=== PATIENT | male | born 1965 | race Caucasian/White ===

== ENCOUNTER 2018-02-24 09:16 | Emergency (ER) | payer OTHER, MEDICAID ==
[~2018-02-24] VITALS: Ht 152.4 cm; Wt 59.9 kg
[2018-02-24 09:21] VITALS: BP 132/89
--- NOTE | 2018-02-24 09:30 | NUR ---
PT AMBULATES WITH ASSISTANCE TO BED 3
--- NOTE | 2018-02-24 09:36 | NUR ---
PATIENT BIB [facility] W/ C/O BOIL/WOUND ON RT BUTTOCKS;ERYTHEMA AND DRAINAGE NOTED.PT HAS A COLOSTOMY; DeNIES ANY FEVER; VSS; PATIENT POSITIONED FOR COMFORT; HOB ELEVATED; BEDRAILS UP X2; BED DOWN. ER MD MADE AWARE OF PT STATUS.
--- NOTE | 2018-02-24 09:52 | NUR ---
CONOR ARREDONDO AT BEDSIDE.
--- NOTE | 2018-02-24 10:13 | NUR ---
DR PAUL EVALUATING AT BEDSIDE
--- NOTE | 2018-02-24 10:32 | NUR ---
Patient discharged with v/s stable. Written and verbal after care instructions given and explained. Patient verbalized understanding. Ambulatory with steady gait. All questions addressed prior to discharge. Advised to follow up with PMD TO REFFER PT TO A SURGEON.
[2018-02-24 10:33] VITALS: BP 126/73
== END 2018-02-24 10:32 | disposition home or self-care (01) ==
LOC: MED 09:16
DX: K60.3 Anal fistula (principal); R03.0 Elevated blood-pressure reading, without diagnosis of hypertension; Z85.47 Personal history of malignant neoplasm of testis; G80.8 Other cerebral palsy; Q02 Microcephaly
CPT/HCPCS: 99283

== ENCOUNTER 2018-09-07 17:17 | Inpatient (IN) | payer OTHER, MEDICAID ==
[~2018-09-07] VITALS: Ht 152.4 cm; Wt 63.5 kg
[~2018-09-07 17:17] MED LIST: ASCO-672 PO; FERR325E14 PO; HAL1 PO; LACT10SO1 PO; METO25TA PO; MULT1SGL58 PO; OMEP20TC12 PO; PANT40EC PO
--- NOTE | 2018-09-07 17:18 | NUR ---
PT BIBA BLS TO BED 5
[2018-09-07 17:22] VITALS: BP 94/61
--- NOTE | 2018-09-07 17:22 | NUR ---
PT BIB BLS AMBULANCE FROM [facility] WITH COMPLAINTS OF VOMITTING AND COLOSTOMY BAG LEAKING TODAY. PER EMS BAG HAS BEEN ATTEMPTED TO BE CHANGED 6 TIMES WITHOUT SUCCESS. PT IS ALERT, NONVERBAL (AT BASELINE), ABLE TO AMBULATE AT BASELINE. HX--- MRCP, ACUTE RENAL FISSURE, ESOPHOGITIS, MICROCEPHALY, SCOLIOSIS MEDS---SEE MED REC
--- NOTE | 2018-09-07 17:25 | NUR ---
WOUND NOTED TO R GROIN/PERINEUM, DOCUMENTED ON WOUND ASSESSMENT AND PHOTOS TAKEN.
--- NOTE | 2018-09-07 17:57 | NUR ---
Note undone in EDM - 09/07/18 at 1800 by [email or web address] [facility] COMPLAINTS OF VOMITTING AND COLOSTOMY BAG LEAKING TODAY. PER EMS BAG HAS BEEN ATTEMPTED TO BE CHANGED 6 TIMES WITHOUT SUCCESS. PT IS ALERT, NONVERBAL (AT BASELINE), ABLE TO AMBULATE AT BASELINE. HX--- MRCP, ACUTE RENAL FISSURE, ESOPHOGITIS, MICROCEPHALY, SCOLIOSIS MEDS---SEE MED REC
[2018-09-07] MEDS ORDERED: NACL 0.9% 1,000 ML IV SCH (17:59)
[2018-09-07] MEDS ORDERED: MORPHINE SULFATE 4 MG/ML SYR IVP ONE (18:00)
[2018-09-07] MEDS ORDERED: ONDANSETRON 4 MG/2 ML VIAL IVP ONE (18:00)
--- NOTE | 2018-09-07 18:00 | NUR ---
PT ON BED IN SUPINE POSITION, BED IN LOW POSITION, FULL MONITOR ON. RESPIS E/U, NO EVIDENCE OF DISTRESS AT THIS TIME. NO IDENTIFIED REQUEST AT THIS TIME.
[2018-09-07 19:07] LABS: BASOPHILS % (AUTO) 0.4 % (0.0-2.0); EOSINOPHILS % (AUTO) 0.1 % (0.0-4.0); HEMATOCRIT 43.4 % (36-52); HEMOGLOBIN 14.2 g/dL (12.0-18.0); LYMPHOCYTES # (AUTO) 0.5 K/uL (2.0-11.5); LYMPHOCYTES % (AUTO) 4.9 % (20.5-51.1); MEAN CORPUSCULAR HEMOGLOBIN 30 pg (27-31); MEAN CORPUSCULAR HGB CONC 33 g/dL (33-37); MEAN CORPUSCULAR VOLUME 91.6 fL (80-94); MONOCYTES # (AUTO) 1.2 K/uL (0.8-1.0); MONOCYTES % (AUTO) 11.9 % (1.7-9.3); NEUTROPHILS # (AUTO) 8.1 K/uL (1.8-7.7); NEUTROPHILS % (AUTO) 82.7 % (42.2-75.2); PLATELET COUNT (AUTO) 196 K/uL (140-450); RED BLOOD CELL COUNT(AUTO) 4.74 MIL/uL (4.20-6.10); RED CELL DISTRIBUTION WIDTH 15.3 % (11.6-13.7); WHITE BLOOD COUNT (AUTO) 9.8 K/uL (4.8-10.8)
--- NOTE | 2018-09-07 19:15 | NUR ---
ASSUMED CARE OF PT AT THIS TIME PT IN BED, CAREGIVERS AT BEDSIDE.
--- NOTE | 2018-09-07 19:15 | NUR ---
Report given to Marivel LEGGETT
[2018-09-07 19:17] LABS: ANION GAP 13.2 (8-16); CARBON DIOXIDE 28.8 mmol/L (21-32); CREATININE 1.4 mg/dL (0.7-1.3)
[2018-09-07 19:19] LABS: APPEARANCE,URINE CLEAR (CLEAR); BILIRUBIN,URINE NEGATIVE (NEGATIVE); BLOOD, URINE NEGATIVE (NEGATIVE); COLOR,URINE YELLOW (YELLOW); LEUKOCYTE ESTERASE ,URINE NEGATIVE (NEGATIVE); NITRITE, URINE NEGATIVE (NEGATIVE); UGLUCOSE NEGATIVE (NEGATIVE)
[2018-09-07 19:24] LABS: ALBUMIN 3.9 g/dL (3.4-5.0); TOTAL BILIRUBIN 0.6 mg/dL (0.0-1.0)
[2018-09-07 19:25] LABS: PROTHROMBIN TIME 10.6 secs (10.8-13.4)
--- NOTE | 2018-09-07 19:38 | NUR ---
PT HAS OSOTOMY SITE TO RT LOWER ABD, GREEN LIQUID STOOL NOTED FROM SITE, CARE GIVERS NOTE THAT OSTOMY BAG HAS BEEN CHANGED ABOUT 6 TIMES TODAY AND PT HAS BEEN SEEN BY SPECIALIST BUT NO IMPROVEMENT.
[2018-09-07] MEDS ORDERED: NACL 0.9% 1,000 ML IV ONE (20:15)
[2018-09-07 20:18] LABS: RBC,URINE 0-5 (RARE) /HPF (0-5); URINE AMORPHOUS URATE 2+ /HPF (None Seen); WBC,URINE 0-5 (RARE) /HPF (0-5)
--- NOTE | 2018-09-07 20:20 | NUR ---
PER ADMITTING, PT TO ADMITTED TO [facility]. BEGIN ADMISSION PROCESS AT THIS TIME
[2018-09-07] MEDS: NACL 0.9% 1,000 ML IV SCH (20:28)
[2018-09-07] MEDS ORDERED: MORPHINE SULFATE 4 MG/ML SYR IVP PRN (20:30)
[2018-09-07] MEDS ORDERED: DOCUSATE SODIUM 100 MG GELCAP PO PRN (20:30)
--- NOTE | 2018-09-07 21:00 | NUR ---
PT IN BED AWAKE, NO NEW NEEDS AT THIS TIME.
[2018-09-07] MEDS ORDERED: BISA-246 RC (21:02)
[2018-09-07] MEDS ORDERED: METO10TA10 PO (21:02)
[2018-09-07] MEDS ORDERED: MAGN400S60 PO (21:02)
[2018-09-07] MEDS ORDERED: OLAN5TAB30 PO (21:02)
[2018-09-07] MEDS ORDERED: MIRABULK PO (21:02)
[2018-09-07] MEDS ORDERED: MENT1OIN22 TP (21:02)
[2018-09-07 21:15] VITALS: BP 86/60
--- NOTE | 2018-09-07 21:15 | NUR ---
REPORT RECEIVED FROM ED NURSE AT BEDSIDE. PT IN STABLE CONDITION. AAOX1. INTRODUCED SELF TO PT. BOARD UPDATED. PT HAS METAL DELAY. MRCP. NO FLACC 6 WHEN TOUCHING OSTOMY SITE. NO SOB. FEBRILE@100.4. WILL MEDICATE. IV SITE R WRIST 22G RUNNING NS@100ML/HR PATENT AND INTACT. PT HAS OSTOMY SITE THAT HAS A POSSIBLE PROLAPSE. SKIN WARM, DRY, AND NOT INTACT DUE TO A SKIN TEAR AT THE PERINEUM. BED LOCKED IN LOW POSITION. CALL RICHARDSON WITHIN REACH. SAFETY PRECAUTIONS IN PLACE. SEIZURE PRECAUTIONS IN PLACE. ALL NEEDS MET AT THIS TIME.
--- NOTE | 2018-09-07 21:15 | NUR ---
Patient will be admitted to care of DR BERTRAND. Admited to MED-SURG. Will go to [id number]. Belongings list completed. Report to BETSEY GONZALEZ.
[2018-09-07] MEDS: HYDROcodone/APAP 7.5/325 MG 1 TAB PO PRN (22:05)
--- NOTE | 2018-09-07 22:05 | NUR ---
NORCO GIVEN FOR FLACC 6/10 AT OSTOMY SITE. PT TOLERATED WELL.
[2018-09-08] VITALS: BP 112/61
--- NOTE | 2018-09-08 | NUR ---
PT HAD A FEVER OF 100.4. TEMPERATURE REASSESSED. NOW 98.3.
--- NOTE | 2018-09-08 01:00 | NUR ---
C.DIFF, STOOL CULTURE, AND WBC STOOL COLLECTED AND SENT TO LAB.
--- NOTE | 2018-09-08 02:00 | NUR ---
PT AWAKE AND ALERT WATCHING TV. NO S/S OF DISTRESS NOTED. WILL CONTINUE TO MONITOR.
[2018-09-08 02:20] LABS: FREE T4 (FREE THYROXINE) 0.84 ng/dL (0.76-1.46); MAGNESIUM 1.9 mg/dL (1.8-2.4); PHOSPHORUS 3.7 mg/dL (2.5-4.9); THYROID STIMULATING HORMONE 0.53 uIU/mL (0.34-3.74)
--- NOTE | 2018-09-08 04:00 | NUR ---
PT SLEEPING COMFORTABLY IN BED. NO S/S OF DISTRESS NOTED. FLACC 0. NO SOB. AFEBRILE. NO N/V. WILL CONTINUE TO MONITOR.
--- NOTE | 2018-09-08 06:00 | NUR ---
PT SLEEPING BUT AROUSABLE. NO S/S OF DISTRESS NOTED. BREATHING EVEN, UNLABORED, AND WNL. WILL CONTINUE TO MONITOR.
[2018-09-08] MEDS ORDERED: metroNIDAZOLE 500 MG/NS PREMIX 100 ML IV SCH (06:30)
[2018-09-08] MEDS: FERROUS SULFATE 325 MG TABEC PO SCH ×3 (06:38→15:59)
[2018-09-08] MEDS: ONDANSETRON 4 MG/2 ML VIAL IM/IVP PRN (06:38)
--- NOTE | 2018-09-08 06:38 | NUR ---
FERROUS SULFATE GIVEN PO. ZOFRAN GIVEN IVP FOR NAUSEA. PT TOLERATED WELL.
[2018-09-08] MEDS: NACL 0.9% 1,000 ML IV SCH (06:59)
--- NOTE | 2018-09-08 06:59 | NUR ---
GAVIN HUNG AND RUNNING. PT TOLERATED WELL.
[2018-09-08] MEDS ORDERED: metroNIDAZOLE 500 MG/NS PREMIX 100 ML IV ONE (07:02)
--- NOTE | 2018-09-08 07:15 | NUR ---
REPORT GIVEN TO AM NURSE AT BEDSIDE. PT IN STABLE CONDITION.
--- NOTE | 2018-09-08 07:17 | NUR ---
REPORT RECEIVED FROM ED NURSE AT BEDSIDE. PT IN STABLE CONDITION. AAOX1. ABLE TO FOLLOW SIMPLE COMMANDS. FLACC 0. INFLAMED ILEOSTOMY SITE. PATIENT REFUSING STAFF TO TOUCH SITE OR CHANGE OSTOMY BAG. PROLAPSED ILEOSTOMY. LIQUID STOOL IN OSTOMY BAG. CONTACT PRECAUTIONS R/O CDIFF. SKIN TEAR TO RT INGUINAL REGION. INTERMITTENT COUGHING NOTED. SOME INTERMITTENT CRACKLES ON EXPIRATION. IV SITE PATENT AND ASYMPTOMATIC, INFUSING IVF PER MD ORDERS. ALL SAFETY PRECAUTIONS IN PLACE, WILL CONTINUE TO MONITOR.
[2018-09-08] MEDS: DEXT 5% /NACL 0.9% 1,000 ML IV SCH ×2 (07:25→17:25)
[2018-09-08 07:48] LABS: HEMATOCRIT 39.9 % (36-52); HEMOGLOBIN 12.8 g/dL (12.0-18.0); MEAN CORPUSCULAR HEMOGLOBIN 30 pg (27-31); MEAN CORPUSCULAR HGB CONC 32 g/dL (33-37); MEAN CORPUSCULAR VOLUME 92.5 fL (80-94); PLATELET COUNT (AUTO) 148 K/uL (140-450); RED BLOOD CELL COUNT(AUTO) 4.31 MIL/uL (4.20-6.10); RED CELL DISTRIBUTION WIDTH 15.9 % (11.6-13.7); WHITE BLOOD COUNT (AUTO) 10.9 K/uL (4.8-10.8)
[2018-09-08 08:00] VITALS: BP 123/61
[2018-09-08] MEDS ORDERED: DRY DRESSING TP PRN (08:05)
[2018-09-08] MEDS ORDERED: THERAHONEY GEL 42.5 GM TP PRN (08:05)
[2018-09-08 08:30] LABS: ANION GAP 16.4 (8-16); CARBON DIOXIDE 22.9 mmol/L (21-32); CREATININE 1.4 mg/dL (0.7-1.3); POTASSIUM 4.3 mmol/L (3.5-5.1)
--- NOTE | 2018-09-08 08:40 | NUR ---
PATIENT HAS BEEN SCREENED AND CATEGORIZED HIGH NUTRITION RISK. PATIENT WILL BE SEEN WITHIN 1-2 DAYS OF ADMISSION. 09/08/18-09/09/[address]
[2018-09-08] MEDS: METOPROLOL 25 MG TAB PO SCH ×2 (09:00→20:36)
[2018-09-08] MEDS: OLANZapine 5 MG TAB PO SCH (09:00)
[2018-09-08] MEDS ORDERED: FAMOTIDINE 20 MG TAB PO SCH (09:00)
[2018-09-08] MEDS: MULTIVITAMIN 1 TAB PO SCH (09:00)
[2018-09-08] MEDS ORDERED: PANTOPRAZOLE 40 MG INJ VIAL IVP SCH (09:03)
[2018-09-08 09:35] LABS: LYMPHOCYTES % (MANUAL) 7 % (20-46); MONOCYTES % (MANUAL) 5 % (5-12)
--- NOTE | 2018-09-08 10:13 | NUR ---
PATIENT REFUSING ESCALANTE CATH PLACEMENT. NOTIFIED.
--- NOTE | 2018-09-08 10:23 | NUR ---
DISCUSSED POC WITH ОЛЕГ COLMENARES FROM [facility].
[2018-09-08 10:58] LABS: CHOL/HDL RATIO 3.2 (1-4.5); MAGNESIUM 1.7 mg/dL (1.8-2.4); PHOSPHORUS 4.2 mg/dL (2.5-4.9)
--- NOTE | 2018-09-08 11:00 | NUR ---
ADMINISTERED TYLENOL FOR TEMP 100.7 F TEMPORAL.
--- NOTE | 2018-09-08 11:23 | NUR ---
CAMPUS SECURITY OFFICER CHANGED OSTOMY BAG
--- NOTE | 2018-09-08 11:48 | NUR ---
ESCALANTE CATH INSERTED. PT TOLERATED WELL.
[2018-09-08] MEDS: metroNIDAZOLE 500 MG/NS PREMIX 100 ML IV SCH ×2 (12:10→20:35)
--- NOTE | 2018-09-08 12:35 | NUR ---
WOUND CARE EVALUATION NOTE: REASON FOR EVALUATION: DIANELYS-STOMA SKIN IRRITATION AND RIGHT GROIN WOUND SKIN ASSESSMENT DONE WITH PRIMARY RN WITH THIS 53 Y/O MALE PT [facility] WITH INITIAL DX OF NAUSEA AND VOMITING WITH LEAKING ILEOSTOMY. PAST MEDICAL HX INCLUDES ANAL FISSURE, CEREBRAL PALSY, CONSTIPATION, HTN AND SCOLIOSIS. PT IS AWAKE, EXPLAIN TO PT. PURPOSE OF SKIN ASSESSMENT AND PROCEDURES, PT COOPERATES AFTER INSTRUCTION EXPLAINED. SKIN IS WARM AND DRY, BLE WITH HAIR GROWTH, DORSAL PEDAL PULSES PRESENT.F/C INSERTED BY PRIMARY RN WITH ASSISTANCE. PLAN OF CARE DISCUSSED WITH PRIMARY RN AND PT. AND PT VERBALIZES UNDERSTANDING. INTEGUMENTARY: -FOREHEAD OLD HEALED SCAR -MID ABDOMINAL OLD HEALED SURGICAL SCAR -RLQ ABDOMINAL PROLAPSE ILEOSTOMY MEASURE 2 �" DIAMETER AND 3 CM TALL, OSTOMY OPENING TO 5 O�CLOCK DIRECTION FUNCTIONING WITH DARK BROWN LIQUID STOOL OUTPUT. DIANELYS-OSTOMY SKIN FROM RIGHT LOWER ABDOMEN EXTENDED TO RIGHT GROIN SKIN IRRITATION, REDNESS WITH 10X8CM, SKIN INTACT. -RIGHT GROIN OLD SURGICAL SCAR WITH A FULL THICKNESS LOSS OF SKIN LOSS 2X0.5X0.7CM, WOUND BED IS RED, SMALL AMOUNT SEROUS DRAINAGE, NO ODOR RECOMMENDATIONS -OSTOMY CARE PER PROTOCOL AND DURING OSTOMY CARE PLEASE FOLLOW SKIN CARE INSTRUCTION BELOW: -APPLY SHIREEN, OR STOMA PAST TO LOWER PORTION OF PER STOMA SKIN -APPLY SKIN PREP TO DIANELYS-OSTOMY SKIN -APPLY STOMA POWDER TO IRRITATED SKIN FROM RIGHT LOWER ABDOMEN EXTENDED TO RIGHT GROIN BY DUSTING - USE 2- PIECES OSTOMY DEVICES, APPLY WAFER TO OSTOMY AND ATTACHED POUCH TO WAFER, CHANGE WAFER WEEKLY. EMPTY AND RINSE POUCH WHEN IT IS 2/3 FULL. -CLEANSE RIGHT GROIN OPEN WOUND WITH NS, PAT DRY, APPLY ALGINATE DRESSING AND COVER WITH A BANDAGE QD AND PRN IF SOILING -OFFLOAD BILATERAL HEELS BY PLACING PILLOWS UNDER CALVES UNLESS OTHERWISE CONTRAINDICATED -PRESSURE REDISTRIBUTION SURFACE THERAPY -TURN AND REPOSITION Q2H, OFFLOAD SACRALCOCCYX BY TURNING RIGHT AND LEFT -CONTINUE TO FOLLOW RD RECOMMENDATIONS ALL ABOVE RECOMMENDATIONS DISCUSSED WITH PRIMARY RN WILL FOLLOW UP PT Q7-10 DAYS. PLEASE CONTACT WOUND CARE NURSE FOR ANY QUESTION AND CHANGE OF WOUND CONDITION.
[2018-09-08] MEDS: ALGINATE ROPE MC SCH (13:00)
--- NOTE | 2018-09-08 13:15 | NUR ---
PT REFUSED WOUND CARE FOR RT INGUINAL REGION SKIN TEAR. Addendum: 09/08/18 at 1624 by Carmelita Pina Meng, RN SURGICAL SCAR
[2018-09-08] MEDS: THERAHONEY GEL 42.5 GM TP SCH (13:46)
[2018-09-08] MEDS: MILD SOAP AND WATER TP SCH (13:47)
[2018-09-08] MEDS: DRY DRESSING TP SCH (13:49)
[2018-09-08] MEDS ORDERED: MAG SULF 2000 MG/WATER PREMIX 50 ML IV SCH (15:00)
[2018-09-08] MEDS: LORazepam 2 MG/ML VIAL IM/IVP PRN (15:50)
--- NOTE | 2018-09-08 15:50 | NUR ---
PER DR. VALE ORDERS, ADMIN ATIVAN PRIOR TO ECHOCARDIOGRAM. PT IS RESTLESS AND UNCOOPERATIVE WHEN TOUCHED.
[2018-09-08 16:00] VITALS: BP 105/55
[2018-09-08] MEDS ORDERED: SODIUM FERRIC GLUCONATE 125 MG in NACL 0.9% 100 ML IV SCH (16:00)
--- NOTE | 2018-09-08 16:31 | NUR ---
PATIENT SLEEPING COMFORTABLY IN BED WITH LIGHT SNORING. WILL CONTINUE TO MONITOR.
--- NOTE | 2018-09-08 17:08 | NUR ---
COLOSTOMY BAG CHANGED. FULL OF LIQUID STOOL.
--- NOTE | 2018-09-08 17:54 | NUR ---
LEFT VOICEMAIL FOR PERSON TO NOTIFY TIMOTHY [phone]. ASKED HER TO CALL US BACK FOR PATIENT'S FLU VACCINE AND PNEUMOVAX STATUS.
--- NOTE | 2018-09-08 19:05 | NUR ---
PER TIMOTHY FROM [facility], PT RECEIVED PNEUMOVAX IN 2018 AND FLU VACCINE IN CURRENT FLU SEASON. SHE WILL BRING PATIENT'S VACCINATION RECORDS TOMORROW.
--- NOTE | 2018-09-08 19:41 | NUR ---
ENDORSED POC TO PROFESSOR OF EARLY CHILDHOOD EDUCATION RN. PT IN STABLE CONDITION.
--- NOTE | 2018-09-08 19:46 | NUR ---
INFORMED DR. SHAH THAT FAMILY WANTS DR. HALL, SURGEON OF PATIENT'S PREVIOUS SURGERIES, TO EVAL THE PATIENT. PATIENT'S BROTHERS CONTACT INFO GIVEN TO
[2018-09-08] MEDS: ACETAMINOPHEN 325 MG TAB PO PRN (20:36)
[2018-09-09] VITALS: BP 102/64
[2018-09-09] MEDS: MILD SOAP AND WATER TP SCH ×2 (01:08→13:00)
[2018-09-09] MEDS: DEXT 5% /NACL 0.9% 1,000 ML IV SCH ×3 (05:14→23:25)
[2018-09-09] MEDS: FERROUS SULFATE 325 MG TABEC PO SCH ×2 (06:30→17:01)
[2018-09-09] MEDS: metroNIDAZOLE 500 MG/NS PREMIX 100 ML IV SCH ×3 (06:30→23:06)
--- NOTE | 2018-09-09 07:30 | NUR ---
ENDORSED REPORT TO DAYSHIFT NURSE AT BEDSIDE FOR CONTINUITY OF CARE.
--- NOTE | 2018-09-09 07:31 | NUR ---
Received report from pm nurse Villarreal. Pt asleep, respirations even & nonlabored, FLACC 0.
--- NOTE | 2018-09-09 07:52 | NUR ---
ENDORSED REPORT TO DAYSHIFT NURSE AT BEDSIDE FOR CONTINUITY OF CARE.
[2018-09-09 08:00] VITALS: BP 90/58
[2018-09-09] MEDS: OLANZapine 5 MG TAB PO SCH (09:00)
[2018-09-09] MEDS: MULTIVITAMIN 1 TAB PO SCH (09:00)
[2018-09-09] MEDS ORDERED: PANTOPRAZOLE 40 MG INJ VIAL IVP SCH (09:00)
--- NOTE | 2018-09-09 09:30 | NUR ---
Right wrist IV pulled out by pt on accident. IV cannula intact. no bleeding noted to site. Will attempt to insert new IV.
[2018-09-09] MEDS: LORazepam 2 MG/ML VIAL IM/IVP PRN (09:57)
--- NOTE | 2018-09-09 09:57 | NUR ---
Ativan admin: Pt restless, uncooperative with IV insertion. Comfort care & reassurance provided, but cont to be restless. Ativan administered IM. Fall precautions in place.
--- NOTE | 2018-09-09 10:10 | NUR ---
Pt left unit via hospital bed for CT scan, accompanied by permit technician.
--- NOTE | 2018-09-09 10:30 | NUR ---
Came back from CT via hospital bed. No signs of distress.
--- NOTE | 2018-09-09 10:57 | NUR ---
Ativan reassessment: Pt awake, calm at this time, no signs of distress, respirations even & nonlabored.
--- NOTE | 2018-09-09 11:00 | NUR ---
Attempted x4 to insert IV to BUE with multiple nurses. Unable to get IV access d/t pt hard stick. Dr Rucker notified & ordered to obtain consent for right IJ central line insertion.
[2018-09-09] MEDS: DRY DRESSING TP SCH (13:00)
[2018-09-09] MEDS: THERAHONEY GEL 42.5 GM TP SCH (13:00)
[2018-09-09] MEDS: ALGINATE ROPE MC SCH (13:00)
--- NOTE | 2018-09-09 13:21 | NUR ---
Correction Officer Head Note: Per Claudia Altamirano from [facility] (name of company is [employer]) address, [address] [place] [id number], patient is not conserved. Claudia stated patient's health care decision makers are patient's sister and father, Diana Hackett and Alireza Hackett Sr. . Claudia reported patient's sister Diana is very involved with patient�s medical care. She stated patient�s caser in at [facility] is Smitha Herrera . I requested Yolanda Conn from Admitting Dept to please include patient�s father and sister contact information on face sheet and contact sister Diana regarding patient�s unsigned admission forms.
--- NOTE | 2018-09-09 13:30 | NUR ---
Sister Telma arrived to visit pt. Discussed difficulty getting peripheral IV access, & Dr order for central line. Per Telma she prefers not to have central line d/t pt pulling on lines. Will notify physician.
--- NOTE | 2018-09-09 13:54 | NUR ---
09/09/18 RD INITIAL ASSESSMENT COMPLETED PLEASE REFER TO NUTRITION ASSESSMENT UNDER CARE ACTIVITY FOR ESTIMATED NUTRITIONAL NEEDS. RD RECOMMENDATIONS: 1. CONTINUE NPO MEDICALLY NECESSARY 2. WHEN PATIENT BECOMES MEDICALLY STABLE AND CLEAR TO BEING PO DIET CONSIDER A MECHANICALLY SOFT REGULAR DIET. 3. RECOMMEND VITAMIN C 100 MG/DAY AND MULTIVITAMIN QD FOR WOUND HEALING 4. RD TO FOLLOW-UP 2-3 DAYS, HIGH RISK SHILPI POWER, RD
--- NOTE | 2018-09-09 14:00 | NUR ---
Bladder scan performed, <94ml bladder contents present. Avila cath intact & draining clear yellow urine. Dr. Aldridge at bedside notified. Physician also notified that pt's sister prefers not to insert central venous IV. Per physician, ok to insert IV access to lower ext. Diana sister aware & agree with plan of care.
[2018-09-09 15:27] LABS: TRANSFERRIN 193 mg/dL (200-370)
[2018-09-09 15:28] LABS: FERRITIN 752 ng/mL (30-400)
[2018-09-09 16:00] VITALS: BP 90/51
[2018-09-09] MEDS: ACETAMINOPHEN 325 MG TAB PO PRN (16:13)
--- NOTE | 2018-09-09 16:13 | NUR ---
Acetaminophen admin: Temporal temp 102.1 F. Pt awake, intermittent non-productive cough present. Room temp kept cool, no heavy blankets used. Will cont to monitor.
[2018-09-09] MEDS: ONDANSETRON 4 MG/2 ML VIAL IM/IVP PRN (16:16)
--- NOTE | 2018-09-09 17:13 | NUR ---
Tylenol reassessment: Temporal temp 98.8 F. Pt sitting up for dinner. No signs of distress. Call light within reach. Right calf IV intact with ongoing D5NS @ 100 ml/hr.
--- NOTE | 2018-09-09 19:25 | NUR ---
Report given to pm nurse Fowler. Addendum: 09/09/18 at 1928 by Rahel Guillory RN Clarification: Report given to pm nurse Mi. Pt in bed, awake, no signs of distress.
--- NOTE | 2018-09-09 19:25 | NUR ---
RECEIVED REPORT FROM DAYSHIFT NURSE AT BEDSIDE FOR CONTINUITY OF CARE PT IN STABLE CONDITION.
--- NOTE | 2018-09-09 20:00 | NUR ---
PT IN LOW BED WITH ALL FALLS AND SEIZURE PRECAUTIONS IN PLACE. PT HAS N/C IN PLACE RUNNING 2LITERS OF SUPPLEMENTAL O2. PT HAS ILEOSTOMY IN PLACE AND NOTED WITH EXCORIATION AROUND AREA. IV SITE 24G ON RIGHT LOWER EXTREMITY RUNNING D5N/S AT 100MLS/HR. PT TURNED AND REPOSITIONED V/S FOLLOWS T 98.5 P 88 R 18 B/P 116/63 02 94% WITH ROOM AIR. PT LUNG SOUNDS DIMINISHED AND NOTED WITH INTERMITTED COUGH.
--- NOTE | 2018-09-09 21:30 | NUR ---
PT GIVEN DUE MEDS OF HEPARIN AND FLAGYL. NO S/S OF PAIN OR DISTRESS NOTED. Addendum: 09/10/18 at 0234 by Hiwot Hernández RN PT ATTEMPTED TO SWAT NURSE DURING INJECTION OF HEPARIN. PT RECEIVED MOST OF THE HEPARIN INJECTION. NO INJURY NOTED.
[2018-09-10] VITALS: BP 94/50
--- NOTE | 2018-09-10 00:30 | NUR ---
PT IN BED, COLOSTOMY BAG INTACT . PT DECLINED AREA BEING WASHED WITH SOAP AND WATER. PT ATTEMPTED TO SWAT NURSE WHEN CLEANING AREA. AREA DRIED AND STOMA POWDER APPLIED ORDERED.
[2018-09-10] MEDS: MILD SOAP AND WATER TP SCH ×3 (01:00→23:53)
--- NOTE | 2018-09-10 01:00 | NUR ---
PT IN BED NO S/S OF PAIN OR DISTRESS NOTED. V/S FOLLOWS T 98.5 P 88 R 18 B/P 116/63 02 94% ON 2 LITERS VIA N/C. ESCALANTE CATHETER INTACT AND COLOSTOMY BAG INTACT AND DRAINED 100MLS OF DARK LIQUID BM.
--- NOTE | 2018-09-10 05:30 | NUR ---
PT IN BED ESCALANTE CATH INTACT AND DRAINING DARK URINE.ILEOSTOMY BAG WAS LEAKING AND WAS CHANGED IT DRAQINED ABOUT 100MLS OF DARK LIQUID BM. PT IV SITE INTACT ON R LL AND RUINING D5NS AT 80. ZOSYN HUNG ORDERED. PT WAS TURNED AND REPOSITIONED. LAST V/S FOLLOWS T99.0 P 103 R 18/P 99/57 02 92% WITH 2LITERS 02 VIA N/C. BED LOW AND ALL FALLS PRECAUTIONS IN PLACE.
[2018-09-10] MEDS: FERROUS SULFATE 325 MG TABEC PO SCH ×2 (05:44→17:51)
[2018-09-10] MEDS: metroNIDAZOLE 500 MG/NS PREMIX 100 ML IV SCH ×3 (05:45→21:00)
[2018-09-10 07:17] LABS: BASOPHILS % (AUTO) 0.4 % (0.0-2.0); EOSINOPHILS % (AUTO) 0.3 % (0.0-4.0); HEMATOCRIT 36.6 % (36-52); HEMOGLOBIN 11.7 g/dL (12.0-18.0); LYMPHOCYTES # (AUTO) 1.1 K/uL (2.0-11.5); LYMPHOCYTES % (AUTO) 20.3 % (20.5-51.1); MEAN CORPUSCULAR HEMOGLOBIN 30 pg (27-31); MEAN CORPUSCULAR HGB CONC 32 g/dL (33-37); MEAN CORPUSCULAR VOLUME 91.8 fL (80-94); MONOCYTES # (AUTO) 0.6 K/uL (0.8-1.0); NEUTROPHILS # (AUTO) 3.5 K/uL (1.8-7.7); PLATELET COUNT (AUTO) 124 K/uL (140-450); RED BLOOD CELL COUNT(AUTO) 3.98 MIL/uL (4.20-6.10); RED CELL DISTRIBUTION WIDTH 15.7 % (11.6-13.7); WHITE BLOOD COUNT (AUTO) 5.2 K/uL (4.8-10.8)
--- NOTE | 2018-09-10 07:25 | NUR ---
Received report from pm nurse Hiwot. Pt asleep, FLACC 0, respirations even & nonlabored. Rt lower leg IV intact & asymtomatic with ongoing D5 NS @ 100ml/hr. Call light within reach.
[2018-09-10 07:29] LABS: ANION GAP 11.1 (8-16); CARBON DIOXIDE 23.8 mmol/L (21-32); CREATININE 1.4 mg/dL (0.7-1.3); POTASSIUM 3.9 mmol/L (3.5-5.1)
[2018-09-10 07:42] LABS: MAGNESIUM 2.1 mg/dL (1.8-2.4); PHOSPHORUS 1.4 mg/dL (2.5-4.9)
[2018-09-10 08:00] VITALS: BP 92/50
[2018-09-10] MEDS: NACL 0.9% 1,000 ML IV SCH ×2 (08:55→17:52)
[2018-09-10] MEDS: MULTIVITAMIN 1 TAB PO SCH (08:56)
[2018-09-10] MEDS: OLANZapine 5 MG TAB PO SCH (08:56)
[2018-09-10] MEDS: FAMOTIDINE 20 MG TAB PO SCH (08:56)
--- NOTE | 2018-09-10 09:03 | NUR ---
CM NOTE RECEIVED ORDER TO DC TO [facility] FOR IV ANTIBIOTICS. PER DR. ROSEN NO DISCHARGE TODAY, PLAN FOR DISCHARGE TOMORROW. [place] [facility] ATTN: [facility] # [phone].
--- NOTE | 2018-09-10 09:10 | NUR ---
250ml liquid dark green stool emptied from ileostomy bag. Stoma pink & moist. Redness present to RLQ abd, no open lesions. Avila cath in place, draining dark laura urine. Rt lower leg IV intact & asymptomatic. Call light within reach.
[2018-09-10] MEDS ORDERED: SODIUM PHOS / POTASSIUM PHOS 1 PKT PDR PO SCH (09:30)
[2018-09-10] MEDS: BENZONATATE 100 MG CAPLF PO SCH ×2 (10:02→22:22)
--- NOTE | 2018-09-10 10:44 | NUR ---
CM NOTE PER ANYI OF [facility] PH# [phone], THEY ARE ACCEPTING THE PATIENT AND CAN GO TO RM [address] VELEZ WHEN READY FOR DISCHARGE. [facility] OF [facility] IS AWARE THAT THERE IS SCROTUM GS AND CULTURE RESULTS PENDING AT THIS TIME. CHARGE NURSE ANA AND DR. ROSEN AWARE.
--- NOTE | 2018-09-10 11:10 | NUR ---
Dr Stevens at bedside assessing pt. Pt in bed, awake, watching TV. No signs of distress, FLACC 0. Rt lower leg IV intact & asymptomatic with ongoing NS @ 120 ml/hr. Ileostomy bag intact & draining loose black stool, indwelling ramachandran cath in place & draining dark laura urine. Call light within reach.
--- NOTE | 2018-09-10 12:10 | NUR ---
Received call from nadine Ortiz's sister. Notified of anticipated discharge to [facility] tomorrow. Sister verbalized understanding & agree with discharge plans.
[2018-09-10] MEDS: ALGINATE ROPE MC SCH (13:25)
[2018-09-10] MEDS: THERAHONEY GEL 42.5 GM TP SCH (13:26)
[2018-09-10] MEDS: DRY DRESSING TP SCH (13:26)
[2018-09-10 16:00] VITALS: BP 111/48
--- NOTE | 2018-09-10 19:19 | NUR ---
Report given to nurse Hiwot.
--- NOTE | 2018-09-10 19:20 | NUR ---
RECEIVED REPORT FORM ARISTIDES RN DAYSHIFT NURSE AT BEDSIDE FOR CONTINUITY OF CARE PT IN STABLE CONDITION.
--- NOTE | 2018-09-10 19:31 | NUR ---
PT SITTING UP IN BED AND VOMITED A LARGE AMOUNT, CENTER MACHINE OPERATOR'S IN ROOM CLEANING PT.
--- NOTE | 2018-09-10 20:00 | NUR ---
PT REFUSED VITAL SIGNS AND HE REFUSED SUPPLEMENTAL 02 VIA N/C. WILL NOTIFY RESIDENT .
--- NOTE | 2018-09-10 20:30 | NUR ---
SPOKE WITH . DR. SHAH ABOUT PT VOMITING. DR. SHAH SAID TO GIVE ZOFRAN PRN/IVP AND TO MONITOR FOR VOMITING. MD CONFIRMED THAT PT IS RECEIVING N/S FLUIDS.
--- NOTE | 2018-09-10 22:00 | NUR ---
PT CONTINUE TO REFUSE V/S AND SUPPLEMENTAL O2. FLAGYL HUNG ORDERED. PT GIVEN ZOFRAN FOR VOMITING. HEPARIN HELD AT THIS TIME, DUE TO PLATELETS BEING LOW AT 124. PT IN BED WITH ALL FALLS AND SEIZURE PRECAUTIONS IN PLACE.
--- NOTE | 2018-09-10 22:15 | NUR ---
DR. SHAH SAID THAT HEPARIN SHOT IS OK TO GIVE, HOWEVER, PT REFUSED IT. ABDOMEN WASHED WITH SOAP AND WATER AND STOMA POWDER SUPPLIED, NEW COLOSTOMY BAG PROVIDED.
[2018-09-10] MEDS: ONDANSETRON 4 MG/2 ML VIAL IM/IVP PRN (22:32)
[2018-09-11] VITALS: BP 88/47
--- NOTE | 2018-09-11 00:08 | NUR ---
PT WILLING TO LET PRIMARY NURSE TAKE V/S IN BED V/S FOLLOWS T 98.6 P 73 R 18 B/P 88/47, PT LYING DOWN ALL FALLS AND SEIZURE PRECAUTIONS IN PLACE. NO S/S OF PAIN OR DISTRESS NOTED.
--- NOTE | 2018-09-11 00:55 | NUR ---
PT VOMITED A MODERATE AMOUNT DR. SHAH AWARE AND IS ORDERING KUB OF THE ABDOMEN.
[2018-09-11] MEDS: ACETAMINOPHEN 325 MG TAB PO PRN (01:32)
--- NOTE | 2018-09-11 01:34 | NUR ---
PT REFUSED KUB DESPITE ENCOURAGEMENT. PT C/O OF HEAD ACHE 10/20 GIVEN TYLENOONL PO/PRN. WILL MONITOR FOR EFFECT. MD SHAH AWARE OF PT REFUSAL, SHE WENT IN TO SPEAK TO PT. PT STILL REFUSED, TOLD TECH TO RETRY KUB IN THE AM.
[2018-09-11] MEDS: NACL 0.9% 1,000 ML IV SCH ×2 (02:55→13:45)
--- NOTE | 2018-09-11 04:00 | NUR ---
PT IN BED, HE WAS TURNED AND CHANGED, V/S FOLLOWS T 98.7 P 89 R 18 B/P 107/55 02 99% ON ROOM AIR.
[2018-09-11] MEDS: FERROUS SULFATE 325 MG TABEC PO SCH (04:51)
[2018-09-11] MEDS: HYDROcodone/APAP 7.5/325 MG 1 TAB PO PRN (04:52)
[2018-09-11] MEDS: metroNIDAZOLE 500 MG/NS PREMIX 100 ML IV SCH ×2 (04:55→13:46)
--- NOTE | 2018-09-11 05:00 | NUR ---
PT C/O HEAD ACH AND WAS GIVEN NORCO WILL MONITOR FOR PAIN.
--- NOTE | 2018-09-11 07:25 | NUR ---
PT IN LOW BED WITH ALL FALLS AND ASPIRATION AND SEIZURE PRECAUTIONS IN PLACE. CARE ENDORSED TO KRISH AT BEDSIDE FOR CONTINUITY OF CARE. ENDORSED THAT PT REFUSED BLOOD DRAW AND KUB X2.
--- NOTE | 2018-09-11 07:26 | NUR ---
RECEIVED BEDSIDE REPORT FROM BETSEY BAIG. PT STABLE, AWAKE, AND ALERT. NO SIGNS OF DISTRESS NOTED. NO REDNESS, SWELLING, OR INFLAMMATION NOTED ON IV SITE. CALL RICHARDSON WITHIN REACH. BED IN LOWEST POSITION, BED ALARM ON. SAFETY MEASURES IN PLACE. PLAN OF CARE REVIEWED.
[2018-09-11 08:00] VITALS: BP 135/77
[2018-09-11] MEDS ORDERED: ALBUTEROL SULFATE/IPRATROPIU 3 ML SOL IH PRN (08:15)
[2018-09-11] MEDS: FAMOTIDINE 20 MG TAB PO SCH ×2 (09:00→09:44)
[2018-09-11] MEDS: OLANZapine 5 MG TAB PO SCH ×2 (09:00→09:44)
[2018-09-11] MEDS: MULTIVITAMIN 1 TAB PO SCH ×2 (09:00→09:44)
[2018-09-11] MEDS: BENZONATATE 100 MG CAPLF PO SCH ×2 (09:00→09:43)
[2018-09-11] MEDS ORDERED: ROC2I IV (09:43)
[2018-09-11] MEDS ORDERED: Therahoney Gel TP ×2 (09:43)
[2018-09-11] MEDS ORDERED: BENZ100C6 PO (09:43)
[2018-09-11] MEDS ORDERED: FAMO20TA13 PO (09:43)
[2018-09-11] MEDS ORDERED: MORP4SOL10 IVP (09:43)
[2018-09-11] MEDS ORDERED: ACET-9529 PO (09:43)
[2018-09-11] MEDS ORDERED: ATI2I IM/IVP (09:43)
[2018-09-11] MEDS ORDERED: ACET-1182 PO (09:43)
[2018-09-11] MEDS ORDERED: Dry Dressing TP ×2 (09:43)
[2018-09-11] MEDS ORDERED: METR250T2 PO (09:44)
--- NOTE | 2018-09-11 10:00 | NUR ---
ADMINISTERED SCHEDULED IV ANTIBIOTIC, PT REFUSED OTHER MEDICATIONS. PT TOLERATED WELL. WILL CONTINUE TO MONITOR.
--- NOTE | 2018-09-11 11:15 | NUR ---
SPOKE WITH PT'S SISTER VIVIAN REGARDING PLAN OF CARE.
[2018-09-11] MEDS ORDERED: SODIUM PHOS / POTASSIUM PHOS 1 PKT PDR PO SCH (11:30)
--- NOTE | 2018-09-11 11:55 | NUR ---
TRANSPORTATION VIA [facility] ARRANGED PER WILLY
--- NOTE | 2018-09-11 12:07 | NUR ---
CALLED [facility] FOR [facility], [employer] SALES [employer]OCIATE AT 3PM.
--- NOTE | 2018-09-11 12:30 | NUR ---
PT REPOSITIONED, LINENS AND GOWN CHANGED.
[2018-09-11] MEDS ORDERED: ALBUTEROL SULFATE/IPRATROPIU 3 ML SOL IH SCH (13:00)
[2018-09-11] MEDS: MILD SOAP AND WATER TP SCH (13:47)
[2018-09-11] MEDS: THERAHONEY GEL 42.5 GM TP SCH (13:47)
[2018-09-11] MEDS: DRY DRESSING TP SCH (13:47)
[2018-09-11] MEDS: ALGINATE ROPE MC SCH (13:47)
--- NOTE | 2018-09-11 13:52 | NUR ---
ADMINISTERED SCHEDULED MEDICATION, PT TOLERATED WELL. NO OTHER NEEDS AT THIS TIME.
--- NOTE | 2018-09-11 15:36 | NUR ---
GAVE REPORT TO RAMOS FROM [facility].
--- NOTE | 2018-09-11 15:53 | NUR ---
D/C INSTRUCTIONS AND PRESCRIPTION GIVEN. IV LEFT IN PLACE FOR FURTHER IV ANTIBIOTIC IN [facility]. REPORT GIVEN TO [facility]. PT STABLE, AWAKE, AND ALERT. PICKED UP BY [facility] TO BE TAKEN TO [facility].
== END 2018-09-11 15:53 | DRG 871 ==
LOC: MED 17:17 → MTU 20:28
PROVIDERS: ADMIT General Practice; ATTEND General Practice
DX: A41.9 Sepsis, unspecified organism (principal); N17.0 Acute kidney failure with tubular necrosis; J69.0 Pneumonitis due to inhalation of food and vomit; F84.0 Autistic disorder; L03.90 Cellulitis, unspecified; N13.30 Unspecified hydronephrosis; K59.09 Other constipation; K52.9 Noninfective gastroenteritis and colitis, unspecified; I34.0 Nonrheumatic mitral (valve) insufficiency; I10 Essential (primary) hypertension; G80.9 Cerebral palsy, unspecified; K21.9 Gastro-esophageal reflux disease without esophagitis; E83.39 Other disorders of phosphorus metabolism; I27.20 Pulmonary hypertension, unspecified; N31.9 Neuromuscular dysfunction of bladder, unspecified; Z85.47 Personal history of malignant neoplasm of testis; Z86.718 Personal history of other venous thrombosis and embolism; Z93.2 Ileostomy status; Z93.3 Colostomy status; E86.0 Dehydration
CPT/HCPCS: 36415; 71045; 80048; 80053; 81001; 82150; 82272; 82728; 83036; 83540; 83605; 83690; 83735; 83880; 84100; 84439; 84443; 84484; 85025; 85045; 85610; 85730; 87040; 87045; 87070; 87075; 87081; 87086; 87205; 87804; 89055; 93005; 96361; 96374; 96375; 99285; A4371; A4649; C1758; C9113; J0696; J1644; J2060; J2270; J2405; J2916; J3475; J3490; J7030; J7042; J7060; J7620; Q0092